=== PATIENT | female | born 1970 | race African-American/Black ===

== ENCOUNTER 2022-03-21 09:14 | Outpatient (CLI) | payer BC | END 2022-03-21 09:15 | disposition home or self-care (01) | LOC: CSHMAMMO 09:14 | PROVIDERS: ATTEND Family Medicine | DX: Z12.31 Encounter for screening mammogram for malignant neoplasm of breast (principal) | CPT/HCPCS: 77063; 77067 ==

== ENCOUNTER 2022-03-21 11:14 | Outpatient (CLI) | payer BC | END 2022-03-21 11:15 | disposition home or self-care (01) | LOC: CSHULT 11:14 | PROVIDERS: ATTEND Family Medicine | DX: N92.1 Excessive and frequent menstruation with irregular cycle (principal); N85.2 Hypertrophy of uterus | CPT/HCPCS: 76856 ==

== ENCOUNTER 2022-10-13 15:19 | Outpatient (CLI) | payer BC ==
[2022-10-13 15:59] LABS: Hemoglobin 11.6 g/dL (12.0-15.5); Mean Corpuscular HGB CONC 31.4 g/dL (32.0-36.0); Mean Corpuscular Volume 88.9 fl (81.6-98.3); Mean Platelet Volume 13.5 fl (7.4-10.4); Platelet Count 151 10x3/uL (150-450); RBC Distribution Width 14.1 % (11.5-14.5); Red Blood Cell (RBC) Count 4.15 10x6/uL (3.90-5.03); White Blood Cell (WBC) Count 5.2 10x3/uL (3.5-10.5)
[2022-10-13 16:08] LABS: BHCG - Serum Negative (NEGATIVE); Pregs Control Background? CLEAR/WHITE (CLR/WHITE); Pregs Control Bar Appear? YES (CONTROL BAR)
== END 2022-10-13 15:20 | disposition home or self-care (01) ==
LOC: CSHLAB 15:19
PROVIDERS: ATTEND Obstetrics & Gynecology
DX: Z01.812 Encounter for preprocedural laboratory examination (principal); N92.0 Excessive and frequent menstruation with regular cycle; D25.9 Leiomyoma of uterus, unspecified
CPT/HCPCS: 84703; 85027; 86850; 86900; 86901

== ENCOUNTER 2022-10-13 15:30 | Inpatient (IN) | payer BC, OTHER ==
[2022-10-13 15:53] VITALS: BMI 28.8
[2022-10-15] MEDS ORDERED: CeleCOXIB 100 MG CAP ONE (06:24)
[2022-10-15] MEDS ORDERED: Famotidine/PF 20 mg/2ml Vial ONE (06:24)
[2022-10-15] MEDS ORDERED: Gabapentin 300 MG CAP ONE (06:24)
[2022-10-15] MEDS ORDERED: Bupivacaine HCl 0.5%/Epinephrine 1:200,000/PF 30 ml Vial ONE (06:29)
[2022-10-15] MEDS ORDERED: Midazolam HCl 2 mg/2 ml Vial ONE (06:42)
[2022-10-15] MEDS ORDERED: Rocuronium Bromide 10 MG/ML (10ML VIAL) ONE (06:42)
[2022-10-15] MEDS ORDERED: Lidocaine 1% PF 5 ML VIAL ONE (06:42)
[2022-10-15] MEDS ORDERED: Ketorolac Tromethamine 30 MG/ML VIAL ONE (06:42)
[2022-10-15] MEDS ORDERED: Glycopyrrolate 0.2 MG/ML 5 ML SYRINGE ONE (06:42)
[2022-10-15] MEDS ORDERED: PROPOFOL 20 ML ONE (06:42)
[2022-10-15] MEDS ORDERED: Ondansetron PF 4 MG/2 ML Vial ONE (06:42)
[2022-10-15] MEDS ORDERED: Fentanyl 100 MCG/2 ML VIAL ONE ×2 (06:43→09:39)
[2022-10-15] MEDS ORDERED: CEFAZOLIN 2 GM VIAL ONE (07:07)
[2022-10-15 08:04] LABS: SARS-CoV-2 NAA Rapid Test Not Detected (NotDetected)
[2022-10-15] MEDS ORDERED: Ondansetron PF 4 MG/2 ML Vial IVP PRN ×2 (09:06→09:45)
[2022-10-15] MEDS ORDERED: Simethicone Chewable 80 MG TAB PO PRN (09:06)
[2022-10-15] MEDS ORDERED: Promethazine HCl 25 MG/ML VIAL IM PRN ×2 (09:06→09:45)
[2022-10-15] MEDS ORDERED: Zolpidem Tartrate 5 MG TAB PO PRN ×2 (09:06→09:45)
[2022-10-15] MEDS ORDERED: Dextrose 50% Abboject 50 ML SYRINGE SLOW IVP PRN (09:08)
[2022-10-15] MEDS ORDERED: Dextrose 5% in Water 1,000 ML IV PRN (09:08)
[2022-10-15] MEDS ORDERED: FENTANYL 500 MCG/10 ML VIAL 1,000 MCG in Sodium Chloride 0.9% 30 ML IV PRN (09:45)
[2022-10-15] MEDS ORDERED: Ketorolac Tromethamine 30 MG/ML VIAL IVP PRN (09:45)
[2022-10-15] MEDS ORDERED: Naloxone HCl 0.4 mg/ml Vial IV PRN (09:45)
[2022-10-15] MEDS ORDERED: diphenhydrAMINE 25 MG CAP PO PRN (09:45)
[2022-10-15] MEDS ORDERED: diphenhydrAMINE 50 MG/ML VIAL IM/IV PRN (09:45)
[2022-10-15] MEDS: HumaLOG 300 UNITS/3 ML VIAL SC PRN ×2 (13:24→17:26)
[2022-10-15] MEDS: Sodium Chloride 0.9% 1,000 ML IV SCH (15:44)
[2022-10-15] MEDS: metFORMIN 500 MG TAB PO SCH (17:26)
[2022-10-16] MEDS: Sodium Chloride 0.9% 1,000 ML IV SCH ×4 (00:47→18:21)
[2022-10-16 04:18] LABS: Hemoglobin 10.6 g/dL (12.0-15.5); Mean Corpuscular HGB CONC 31.3 g/dL (32.0-36.0); Mean Corpuscular Hemoglobin 27.9 pg (27.0-33.0); Mean Corpuscular Volume 89.2 fl (81.6-98.3); Mean Platelet Volume 13.1 fl (7.4-10.4); Platelet Count 122 10x3/uL (150-450); RBC Distribution Width 13.8 % (11.5-14.5); White Blood Cell (WBC) Count 7.2 10x3/uL (3.5-10.5)
[2022-10-16] MEDS: metFORMIN 500 MG TAB PO SCH ×2 (08:07→18:06)
[2022-10-16] MEDS: Rosuvastatin 10 MG TAB PO SCH (08:08)
[2022-10-16] MEDS: Hydrochlorothiazide 25 MG TAB PO SCH (08:08)
[2022-10-16] MEDS: Lisinopril 10 MG TAB PO SCH (08:08)
[2022-10-16] MEDS: HumaLOG 300 UNITS/3 ML VIAL SC PRN ×2 (11:59→18:48)
[2022-10-16] MEDS ORDERED: HYDROcodone/Acetaminophen 5/325 mg Tablet PO PRN (14:36)
[2022-10-16] MEDS ORDERED: cloNIDine 0.1 MG TAB PO PRN (14:37)
[2022-10-16] MEDS ORDERED: Metoprolol Tartrate 25 MG TAB PO PRN (14:39)
[2022-10-16] MEDS: HYDROcodone/Acetaminophen 5/325 mg Tablet PO PRN (15:51)
[2022-10-17] MEDS: metFORMIN 500 MG TAB PO SCH (07:53)
[2022-10-17] MEDS: Lisinopril 10 MG TAB PO SCH (07:53)
[2022-10-17] MEDS: Hydrochlorothiazide 25 MG TAB PO SCH (07:54)
[2022-10-17] MEDS: Rosuvastatin 10 MG TAB PO SCH (07:54)
[2022-10-17] MEDS: HYDROcodone/Acetaminophen 5/325 mg Tablet PO PRN (08:02)
[2022-10-17] MEDS: HumaLOG 300 UNITS/3 ML VIAL SC PRN (11:05)
[2022-10-17 11:12] VITALS: BP 148/74; TEMP 97.8
== END 2022-10-17 11:48 | disposition home or self-care (01) | DRG 743 ==
LOC: CSHTELE 10-15 06:02 → CSHPED 10-15 09:38
PROVIDERS: ADMIT Obstetrics & Gynecology; ATTEND Obstetrics & Gynecology
PROC: 0UT90ZL Resection of Uterus, Supracervical, Open Approach (ICD-10-PCS; principal; 2022-10-15)
PROC: 0UT70ZZ Resection of Bilateral Fallopian Tubes, Open Approach (ICD-10-PCS; 2022-10-15)
PROC: 0UT10ZZ Resection of Left Ovary, Open Approach (ICD-10-PCS; 2022-10-15)
DX: N92.0 Excessive and frequent menstruation with regular cycle (principal); D25.9 Leiomyoma of uterus, unspecified; Z20.822 Contact with and (suspected) exposure to COVID-19; Z82.49 Family history of ischemic heart disease and other diseases of the circulatory system; Z83.3 Family history of diabetes mellitus; Z79.84 Long term (current) use of oral hypoglycemic drugs; Z79.899 Other long term (current) drug therapy; I10 Essential (primary) hypertension; E11.9 Type 2 diabetes mellitus without complications
CPT/HCPCS: 36415; 36416; 84703; 85027; 86850; 86900; 86901; 88307; J1815; J1885; J2250; J2405; J2704; J3010; J7050; S0028; U0002